=== PATIENT | female | born 2000 | race Caucasian/White ===

== ENCOUNTER 2023-08-03 08:15 | Day surgery (SDC) | payer OTHER ==
[~2023-08-03] VITALS: Ht 160 cm; Wt 63.9 kg
[2023-08-03] MEDS ORDERED: ALLEGRA ALLERGY60 MG PO (08:55)
[2023-08-03 09:19] VITALS: BP 111/65; PULSE 51; TEMP 97.3
[2023-08-03 09:56] VITALS: BP 115/73; PULSE 54; TEMP 97.6
--- NOTE | 2023-08-03 09:56 | NUR ---
PATIENT AMBULATED WITH STEADY GAIT TO THE CHAIR, ALERT AND ORIENTED X3. DENIES PAIN, NAUSEA AND SHORTNESS OF BREATH. BREATHING REGULAR AND UNLABORED ON ROOM AIR. SKIN WARM AND DRY. NURSE HANDOFF COMPLETED IN ROOM. SEE CHART FOR VITAL SIGNS. PATIENT HAD WATER AND SALTINES. BOTH FOOD AND DRINK TOLERATED WELL.
[2023-08-03 10:00] VITALS: BP 109/73; PULSE 59
[2023-08-03 10:15] VITALS: BP 106/62; PULSE 50
[2023-08-03 10:27] VITALS: BP 119/66; PULSE 58
--- NOTE | 2023-08-03 10:40 | NUR ---
1017: MET WITH PATIENT TO DISCUSS PROCEDURE. DISCHARGE TEACHING COMPLETED WITH PRINTED EDUCATION AND INSTRUCTIONS SENT HOME WITH PATIENT. PATIENT VERBALIZED UNDERSTANDING OF TEACHING. IV REMOVED. GAUZE AND COBAN PLACED OVER SITE. PATIENT DISCHARGED HOME WITH , [facility], TRANSPORT.
== END 2023-08-03 10:40 | disposition home or self-care (01) ==
LOC: SDCO 08:15
DX: K59.00 Constipation, unspecified (principal); R19.7 Diarrhea, unspecified
CPT/HCPCS: J2704